=== PATIENT | female | born 1965 | race Caucasian/White ===

== ENCOUNTER 2020-11-11 15:52 | Observation (INO) ==
[2020-11-12] MEDS ORDERED: Naloxone 0.4 MG/ML INJ IVP PRN ×2 (01:33→13:43)
[2020-11-12] MEDS ORDERED: 0.9 % Sodium Chloride 1,000 ML IVC SCH (01:45)
[2020-11-12] MEDS: Ondansetron 4 MG/2 ML VIAL IVP PRN ×2 (05:21→13:31)
[2020-11-12 06:52] LABS: Basophils % 0.2 %; Eosinophils % 0.4 %; Hematocrit 35.7 % (35.3-44.9); Hemoglobin 11.6 g/dL (11.5-15.4); Immature Granulocytes % 0.2 % (0-4); Lymphocytes % 20.1 %; Mean Corpuscular HGB Conc 32.5 g/dL (31.6-35.5); Mean Corpuscular Hemoglobin 30.8 pg (28.0-33.3); Mean Corpuscular Volume 94.7 fL (83.0-100.0); Mean Platelet Volume 10.5 fL (9.4-12.4); Monocytes # 0.8 K/mcL (0.0-1.3); Monocytes % 7.9 %; Neutrophils # 7.1 K/mcL (1.6-8.9); Platelet Count 270 K/mcL (140-400); Red Blood Count 3.77 M/mcL (3.82-4.97); Red Cell Distribution Width 12.9 % (11.5-14.5); Segmented Neutrophils % 71.2 %
[2020-11-12 07:06] LABS: INR 1.2; Prothrombin Time 13.4 Seconds (9.4-12.1)
[2020-11-12 07:08] LABS: Alanine Aminotransferase 15 Units/L (7-52); Albumin 4.2 g/dL (3.5-5.7); Albumin/Globulin Ratio 1.4 (1.1-2.2); Alkaline Phosphatase 66 Units/L (34-104); Aspartate Amino Transferase 14 Units/L (13-39); BUN/Creatinine Ratio 22 (6-26); Bilirubin,Total 0.4 mg/dL (0.3-1.0); Blood Urea Nitrogen 14 mg/dL (6-20); Calcium 8.9 mg/dL (8.6-10.3); Carbon Dioxide 27 mEq/L (23-29); Chloride 106 mEq/L (98-107); Globulin 2.9 g/dL (2.4-3.5); Glucose 98 mg/dL (70-105); Osmolality,Calculated 290 (280-300); Potassium 3.7 mEq/L (3.5-5.1); Sodium 140 mEq/L (136-145); Total Protein 7.1 g/dL (6.4-8.9); Troponin I < 0.03 ng/mL (< 0.04); eGFR For African Americans > 60 (> 60); eGFR For Non-African Americans > 60 (> 60)
[2020-11-12 07:09] LABS: Activated Partial Thrombo Time 32.3 Seconds (26.0-36.0)
[2020-11-12] MEDS ORDERED: traZODone 50 MG TABLET PO PRN ×2 (08:16→13:43)
[2020-11-12] MEDS ORDERED: *HR* FentaNYL (PF) 100 MCG/2 ML VIAL IVP PRN ×2 (08:27→13:43)
[2020-11-12] MEDS ORDERED: *HR* Midazolam HCl 2 MG/2 ML VIAL ONE ×2 (09:04→09:45)
[2020-11-12] MEDS ORDERED: Lidocaine -MPF 2% 2 ML VIAL ONE (09:04)
[2020-11-12] MEDS ORDERED: *HR* Propofol 200 MG/20 ML VIAL IVP ONE (09:04)
[2020-11-12] MEDS ORDERED: *HR* Succinylcholine 200 MG/10 ML VIAL IVP ONE (09:04)
[2020-11-12] MEDS ORDERED: *HR* FentaNYL (PF) 100 MCG/2 ML VIAL ONE (09:04)
[2020-11-12] MEDS ORDERED: Ondansetron 4 MG/2 ML VIAL ONE (09:04)
[2020-11-12] MEDS: *HR* HYDROmorphone PF 0.5 MG/0.5 ML SYRINGE IVP PRN ×3 (09:42→11:25)
[2020-11-12] MEDS ORDERED: *HR* Midazolam HCl 2 MG/2 ML VIAL IVP ONE ×2 (09:49→13:43)
[2020-11-12] MEDS ORDERED: ceFAZolin 2,000 MG in Water for inj. (sterile) 20 ML IVP ONE (09:51)
[2020-11-12] MEDS ORDERED: Acetaminophen IV 1,000 MG/100 ML BAG IVPB ONE (09:55)
[2020-11-12] MEDS ORDERED: Lidocaine/EPI 1:100k 1% 50 ML VIAL ONE (09:59)
[2020-11-12] MEDS ORDERED: Albuterol 2.5 MG/3 ML NEBULIZER ONE (11:26)
[2020-11-12] MEDS ORDERED: Albuterol 2.5 MG/3 ML NEBULIZER IH ONE (11:38)
[2020-11-12] MEDS ORDERED: *HR* HYDROmorphone PF 0.5 MG/0.5 ML SYRINGE IVP PRN (13:43)
[2020-11-12] MEDS ORDERED: Ondansetron 4 MG/2 ML VIAL IVP PRN (13:43)
[2020-11-12] MEDS: CeFAZolin 2 GM/120 ML BAG IVPB SCH (17:18)
[2020-11-13] MEDS: CeFAZolin 2 GM/120 ML BAG IVPB SCH (02:06)
[2020-11-13 07:03] LABS: Basophils % 0.2 %; Eosinophils % 0.1 %; Hemoglobin 11.9 g/dL (11.5-15.4); Immature Granulocytes % 0.6 % (0-4); Lymphocytes % 15.6 %; Mean Corpuscular HGB Conc 31.3 g/dL (31.6-35.5); Mean Corpuscular Hemoglobin 30.4 pg (28.0-33.3); Mean Corpuscular Volume 97.2 fL (83.0-100.0); Mean Platelet Volume 10.5 fL (9.4-12.4); Monocytes # 1.1 K/mcL (0.0-1.3); Monocytes % 8.6 %; Neutrophils # 9.4 K/mcL (1.6-8.9); Platelet Count 258 K/mcL (140-400); Red Blood Count 3.91 M/mcL (3.82-4.97); Red Cell Distribution Width 13.2 % (11.5-14.5); Segmented Neutrophils % 74.9 %; White Blood Count 12.5 K/mcL (4.3-11.1)
[2020-11-13 07:22] LABS: BUN/Creatinine Ratio 16 (6-26); Blood Urea Nitrogen 10 mg/dL (6-20); Calcium 8.9 mg/dL (8.6-10.3); Carbon Dioxide 31 mEq/L (23-29); Chloride 103 mEq/L (98-107); Glucose 100 mg/dL (70-105); Osmolality,Calculated 287 (280-300); Potassium 3.9 mEq/L (3.5-5.1); Sodium 139 mEq/L (136-145); eGFR For African Americans > 60 (> 60); eGFR For Non-African Americans > 60 (> 60)
[2020-11-13] MEDS ORDERED: Cholecalciferol (D-3) 1,000 UNIT (25MCG) TABLET PO SCH (09:00)
[2020-11-13] MEDS ORDERED: Loratadine 10 MG TABLET PO SCH ×2 (09:00)
[2020-11-13] MEDS ORDERED: Ascorbic Acid 500 MG TABLET PO SCH (09:00)
[2020-11-13] MEDS ORDERED: Aspirin Enteric Coated 81 MG Tablet PO SCH ×2 (09:00)
[2020-11-13 11:29] VITALS: BP 123/72
== END 2020-11-13 11:57 | disposition home or self-care (01) ==
LOC: 3NENU → SUATTDRO 23:31
PROVIDERS: ADMIT Internal Medicine; ATTEND General Practice